=== PATIENT | male | born 1950 | race Caucasian/White ===

== ENCOUNTER 2017-02-14 16:42 | Emergency (ER) | payer MEDICARE, BC ==
--- NOTE | 2017-02-14 16:54 | EDM.PDOC ---
ED HPI GENERAL MEDICAL PROBLEM - General Chief Complaint: Chest Pain Stated Complaint: HEART Time Seen by Provider: 02/14/17 16:50 Source of Information: Reports: Patient, Old Records History Limitations: Reports: No Limitations - History of Present Illness INITIAL COMMENTS - FREE TEXT/NARRATIVE: 66 yo male with no personal or FHx of CAD presents with about a week's duration of substernal chest pain. Sx's not changed with either eating or activity. Stopped his diclofenac thinking this might be the problem, but it didn't help. Is taking Prilosec. Has not been to the clinic. No nausea, diaphoresis or SOB. Has had a couple episodes of worsening of his GERD also lately. No radiation of the pain away from the sternum. No calf pain or LE edema. Is not a smoker. His last BP was about 2 mos ago and was in the 130's systolic. Onset Date: 02/06/17 Duration: Day(s):, Constant Location: Reports: Chest Quality: Reports: Dull Severity: Mild Improves with: Reports: None Worsens with: Reports: None Context: Reports: Other (unknown) Associated Symptoms: Reports: Chest Pain. Denies: Cough, Fever/Chills, Nausea/ Vomiting, Shortness of Breath Treatments BIRDCAGE ASSEMBLER: Reports: Other (see below) (PPI) Chest Pain Score (Numeric/FACES): 2 - Related Data Allergies Allergy/AdvReac Type Severity Reaction Status Date / Time morphine Allergy Severe Anaphylactic Verified 02/14/17 16:52 Shock Home Meds: Home Meds Diclofenac Sodium 1 tab PO BID 12/07/14 [History] Omeprazole [Prilosec] 1 tab PO DAILY 12/07/14 [History] Cetirizine [ZyrTEC] 10 mg PO DAILY 12/06/16 [History] Past Medical History Musculoskeletal History: Reports: Other (See Below) Other Musculoskeletal History: L shoulder pain Other Dermatologic History: lesion removed - Past Surgical History Other Neurological Surgeries/Procedures: back surgery-shaved disc Social & Family History - Tobacco Use Smoking Status *Q: Former Smoker Years of Tobacco use: 45 Packs/Tins Daily: 0.2 Month Tobacco Last Used: 11/2014 Second Hand Smoke Exposure: No - Alcohol Use Days Per Week of Alcohol Use: 5 Number of Drinks Per Day: 2 Total Drinks Per Week: 10 - Recreational Drug Use Recreational Drug Use: No ED ROS GENERAL - Review of Systems Review Of Systems: See Below Constitutional: Reports: No Symptoms HEENT: Reports: No Symptoms Respiratory: Reports: No Symptoms Cardiovascular: Reports: Chest Pain Endocrine: Reports: No Symptoms GI/Abdominal: Reports: No Symptoms : Reports: No Symptoms Musculoskeletal: Reports: No Symptoms Skin: Reports: No Symptoms Neurological: Reports: No Symptoms ED EXAM, GENERAL - Physical Exam Exam: See Below Exam Limited By: No Limitations General Appearance: Alert, WD/WN, No Apparent Distress Eye Exam: Bilateral Eye: Normal Inspection Ears: Normal External Exam, Normal Canal, Hearing Grossly Normal, Normal TMs Ear Exam: Bilateral Ear: Auricle Normal, Canal Normal Nose: Normal Inspection, Normal Mucosa, No Blood Throat/Mouth: Normal Inspection, Normal Lips, Normal Teeth, Normal Oropharynx, Normal Voice, No Airway Compromise Head: Atraumatic, Normocephalic Neck: Normal Inspection, Supple, Non-Tender Respiratory/Chest: No Respiratory Distress, Lungs Clear, Normal Breath Sounds, No Accessory Muscle Use Cardiovascular: Regular Rate, Rhythm, No Edema Back Exam: Normal Inspection. No: CVA Tenderness (R), CVA Tenderness (L) Extremities: Normal Inspection, Normal Range of Motion, Non-Tender, No Pedal Edema Neurological: Alert, Oriented, CN II-XII Intact, Normal Cognition, No Motor/ Sensory Deficits Psychiatric: Normal Affect, Normal Mood Skin Exam: Warm, Dry, Intact, Normal Color, No Rash Lymphatic: No Adenopathy EKG INTERPRETATION EKG Date: 02/14/17 Time: 16:45 Rhythm: NSR Rate (Beats/Min): 74 Jefferson: LAD-Left Jefferson Deviation P-Wave: Present QRS: Normal ST-T: Normal QT: Normal Comparison: NA - No Prior EKG Course - Vital Signs Text/Narrative:: No change with GI cocktail po Last Recorded V/S: Last Vital Signs Temp 36.4 C 02/14/17 16:49 Pulse 73 02/14/17 17:35 Resp 17 02/14/17 17:35 BP 142/84 H 02/14/17 17:48 Pulse Ox 99 02/14/17 17:35 - Orders/Labs/Meds Orders: Active Orders 24 hr Category Date Time Status Cardiac Monitoring [RC] .As Directed Care 02/14/17 16:49 Active EKG Documentation Completion [RC] ASDIRECTED Care 02/14/17 16:50 Active Sodium Chloride 0.9% [Saline Flush] Med 02/14/17 17:20 Active 10 ml FLUSH ASDIRECTED PRN EKG 12 Lead [EK] Routine Ther 02/14/17 16:50 Ordered Medication Orders Sodium Chloride (Saline Flush) 10 ml FLUSH ASDIRECTED PRN PRN Reason: Keep Vein Open Labs: Laboratory Tests 02/14/17 Range/Units 17:03 Troponin I < 0.017 (0.000-0.056) ng/mL Meds: Medications Generic Name Dose Route Start Last Admin Trade Name Freq PRN Reason Stop Dose Admin Sodium Chloride 10 ml 02/14/17 17:20 Saline Flush FLUSH ASDIRECTED PRN Keep Vein Open Discontinued Medications Generic Name Dose Route Start Last Admin Trade Name Freq PRN Reason Stop Dose Admin Clonidine HCl 0.1 mg 02/14/17 17:33 02/14/17 17:48 Catapres PO 02/14/17 17:34 0.1 mg ONETIME ONE Administration Al Hydroxide/Mg Hydroxide 15 0 ml 02/14/17 17:02 02/14/17 17:11 ml/ Lidocaine HCl 15 ml PO 02/14/17 17:03 30 ml ONETIME ONE Administration Labetalol HCl 20 mg 02/14/17 17:20 Normodyne IVPUSH 02/14/17 17:21 NOW ONE Protocol Departure - Departure Time of Disposition: 18:03 Disposition: Home, Self-Care 01 Condition: Fair Clinical Impression: Atypical chest pain GERD (gastroesophageal reflux disease) Qualifiers: Esophagitis presence: with esophagitis Qualified Code(s): K21.0 - Gastro- esophageal reflux disease with esophagitis HTN (hypertension) Qualifiers: Hypertension type: essential hypertension Qualified Code(s): I10 - Essential ( primary) hypertension Referrals: Sergio Coto MD [Primary Care Provider] - Forms: ED Department Discharge - My Orders Last 24 Hours: My Active Orders 02/14/17 16:49 Cardiac Monitoring [RC] .As Directed 02/14/17 16:50 EKG Documentation Completion [RC] ASDIRECTED EKG 12 Lead [EK] Routine 02/14/17 17:20 Sodium Chloride 0.9% [Saline Flush] 10 ml FLUSH ASDIRECTED PRN - Assessment/Plan Last 24 Hours: My Active Orders 02/14/17 16:49 Cardiac Monitoring [RC] .As Directed 02/14/17 16:50 EKG Documentation Completion [RC] ASDIRECTED EKG 12 Lead [EK] Routine 02/14/17 17:20 Sodium Chloride 0.9% [Saline Flush] 10 ml FLUSH ASDIRECTED PRN
[2017-02-14] MEDS ORDERED: Alum Hydrox/Mag Hydrox/Simeth 15 ML, Lidocaine 2% 15 ML PO ONE ×2 (17:02)
[2017-02-14] MEDS ORDERED: Sodium Chloride 0.9% 10 ML Syringe FLUSH PRN (17:20)
[2017-02-14] MEDS ORDERED: Labetalol 20 MG/4 ML Syringe IVPUSH ONE (17:20)
[2017-02-14] MEDS ORDERED: cloNIDine 0.1 MG Tab PO ONE (17:33)
[2017-02-14 18:15] VITALS: BP 141/73
== END 2017-02-14 18:17 | disposition home or self-care (01) ==
LOC: JP.ED 16:42
DX: K21.0 Gastro-esophageal reflux disease with esophagitis (principal); R07.89 Other chest pain; I10 Essential (primary) hypertension; Z87.891 Personal history of nicotine dependence; Z79.899 Other long term (current) drug therapy; Z88.5 Allergy status to narcotic agent
CPT/HCPCS: 36415; 84484; 93005; 93010; 96374; 99285; A9270

== ENCOUNTER 2017-03-02 06:56 | Day surgery (SDC) | payer MEDICARE, BC ==
[2017-03-02] MEDS ORDERED: Lactated Ringers 1,000 ML IV SCH (07:15)
[2017-03-02] MEDS ORDERED: fentaNYL 100 MCG/2 ML SDV ONE (07:24)
[2017-03-02] MEDS ORDERED: Midazolam 1 MG/ML 2 ML SDV ONE (07:24)
[2017-03-02] MEDS ORDERED: Propofol 200 MG/20 ML SDV ONE (07:24)
[2017-03-02 10:13] VITALS: BP 114/70
--- NOTE | 2017-03-02 11:03 | OR ---
DATE OF PROCEDURE: 03/02/2017 PREOPERATIVE DIAGNOSIS: Gastroesophageal reflux disease, chronic use of a proton pump inhibitor. POSTOPERATIVE DIAGNOSES: Gastroesophageal reflux disease, 3 cm hiatal hernia, gastric polyps consistent with fundic gland polyps, and chronic use of a proton pump inhibitor. PROCEDURE: Esophagogastroduodenoscopy with antral biopsies for CLOtest and for pathology to look for Helicobacter pylori, biopsy resection of small gastric polyps, biopsy of gastroesophageal junction. SURGEON: Curly Javier MD. ANESTHESIA: IV anesthesia with monitored anesthesia care. INDICATION: This 66-year-old white male is referred for upper endoscopy because of symptoms of gastroesophageal reflux disease. He has chronically been taking a proton pump inhibitor. I counseled him for upper endoscopy with possible biopsy, including risks and alternatives, and he gave his informed consent to proceed. DESCRIPTION OF PROCEDURE: The patient was placed in the left lateral decubitus position. IV anesthesia was administered by the Anesthesia Service. Time-out was held. The flexible video Olympus upper endoscope was passed through his mouth, down his esophagus, and into his stomach. The scope was easily passed through the pylorus into the duodenum , reaching its third portion. The scope was then slowly withdrawn examining the mucosa throughout. The duodenal mucosa appeared unremarkable. The scope was brought up through the pylorus. There was some fine erythema in the antrum. He is on a proton pump inhibitor which could mask Helicobacter pylori infection. Because of this, we obtained biopsies of the antrum for CLOtest and for pathology to look for Helicobacter pylori. The scope was retroflexed. The most proximal stomach appeared unremarkable. The scope was straightened. In the main body of the stomach, we saw several small polyps, some of which were removed. These were consistent with fundic gland polyps. The scope was then brought up to the GE junction, an to do this, we passed through about a 3 cm in length hiatal hernia. The GE junction was abnormal with fingers of gastric mucosa going proximally up into the esophagus. We obtained multiple, totalling at least six, biopsies of the gastroesophageal junction. The scope was then brought proximally up through the remainder of the esophagus, which otherwise appeared unremarkable, and it was removed. He tolerated the procedure well. Curly Javier MD /[id number] [facility]
== END 2017-03-02 10:16 | disposition home or self-care (01) ==
LOC: JP.SDS 06:56
PROVIDERS: ATTEND Surgery
DX: K31.7 Polyp of stomach and duodenum (principal); K44.9 Diaphragmatic hernia without obstruction or gangrene; K21.9 Gastro-esophageal reflux disease without esophagitis; Z88.8 Allergy status to other drugs, medicaments and biological substances; F17.200 Nicotine dependence, unspecified, uncomplicated
CPT/HCPCS: 43239; 87081; J2250; J2704; J3010; J7120; 88305

== ENCOUNTER 2017-05-18 07:20 | Inpatient (IN) | payer MEDICARE, BC ==
[~2017-05-18 07:20] MED LIST: Bupivacaine 0.5% 50 ML MDV ONE; Bupivacaine 0.5%/EPINEPHrine 1:200,000 50 ML MDV ONE; Dexamethasone 4 MG/ML 5 ML MDV ONE; Povidone-Iodine 10% Soln 118.25 ML Bottle ONE; Thrombin (Bovine) 5,000 Unit Kit ONE
[2017-05-18] MEDS: Lactated Ringers 1,000 ML IV SCH ×2 (08:14→14:45)
[2017-05-18] MEDS ORDERED: ceFAZolin 2 GM in Premix Bag 1 BAG IV ONE (09:00)
[2017-05-18] MEDS ORDERED: Scopolamine 1.5 MG Transdermal Patch TOP SCH (09:00)
[2017-05-18] MEDS ORDERED: Acetaminophen 500 MG Tab PO ONE (09:00)
[2017-05-18] MEDS ORDERED: Gabapentin 300 MG Cap PO ONE (09:00)
[2017-05-18] MEDS ORDERED: fentaNYL 250 MCG/5 ML SDV ONE ×2 (09:18→10:41)
[2017-05-18] MEDS ORDERED: Dexamethasone 4 MG/ML SDV ONE ×2 (09:19→11:43)
[2017-05-18] MEDS ORDERED: Propofol 200 MG/20 ML SDV ONE (09:19)
[2017-05-18] MEDS ORDERED: Ondansetron 4 MG/2 ML SDV ONE (09:19)
[2017-05-18] MEDS ORDERED: Succinylcholine/Normal Saline 200 MG/10 ML Syringe ONE (09:19)
[2017-05-18] MEDS ORDERED: Rocuronium 50 MG/5 ML Vial ONE (09:19)
[2017-05-18] MEDS ORDERED: Ketamine 500 MG/5 ML MDV IV SCH (10:15)
[2017-05-18] MEDS: Tranexamic Acid 920 MG in Sodium Chloride 0.9% 50 ML IV SCH ×2 (11:00→12:18)
[2017-05-18] MEDS ORDERED: Acetaminophen 1,000 MG in Premix Bag 1 BAG IV ONE ×2 (12:25→14:30)
[2017-05-18] MEDS ORDERED: Ondansetron 4 MG/2 ML SDV IVPUSH PRN (12:25)
[2017-05-18] MEDS ORDERED: Zolpidem 5 MG Tab PO PRN (12:25)
[2017-05-18] MEDS ORDERED: Aluminum Hydroxide/Magnesium Hydroxide/Simethicone Susp 30 ML Cup PO PRN (12:25)
[2017-05-18] MEDS ORDERED: Naloxone 0.4 MG/ML SDV IVPUSH PRN (12:25)
[2017-05-18] MEDS ORDERED: HYDROmorphone 1 MG/ML Syringe IVPUSH PRN (12:25)
[2017-05-18] MEDS ORDERED: Cetirizine 10 MG Tab PO PRN (12:28)
[2017-05-18] MEDS ORDERED: ceFAZolin 2 GM in Sodium Chloride 0.9% 50 ML IV SCH ×2 (12:30→16:00)
[2017-05-18] MEDS: ceFAZolin 2 GM in Premix Bag 1 BAG IV SCH (16:12)
--- NOTE | 2017-05-18 17:25 | PCM.PN ---
- General Info Functional Status: Reports: Pain Controlled - Review of Systems General: Reports: No Symptoms HEENT: Reports: Dysphasia Pulmonary: Reports: No Symptoms Cardiovascular: Reports: No Symptoms Gastrointestinal: Reports: No Symptoms Genitourinary: Reports: No Symptoms Musculoskeletal: Reports: No Symptoms Skin: Reports: No Symptoms Neurological: Reports: Numbness, Tingling Psychiatric: Reports: No Symptoms - Patient Data Vitals - Most Recent: Last Vital Signs Temp 96.3 F 05/18/17 14:47 Pulse 80 05/18/17 16:00 Resp 16 05/18/17 16:00 BP 144/75 H 05/18/17 16:00 Pulse Ox 95 05/18/17 16:00 Weight - Most Recent: 203 lb 11.314 oz I&O - Last 24 Hours: Intake & Output 05/18/17 05/18/17 05/18/17 06:59 14:59 22:59 Intake Total 100 50 Balance 100 50 Lab Results Last 24 Hours: Laboratory Results - last 24 hr 05/18/17 Range/Units 08:16 Blood Type A POSITIVE Gel Antibody Screen Negative Med Orders - Current: Current Medications Al Hydroxide/Mg Hydroxide (Mag-Al Plus) 30 ml PO Q4H PRN PRN Reason: Indigestion Cetirizine HCl (Zyrtec) 10 mg PO DAILY PRN PRN Reason: Allergies Hydromorphone HCl (Dilaudid) 1 mg IVPUSH Q2H PRN PRN Reason: Pain Stop: 05/19/17 12:25 Lactated Ringer's (Ringers, Lactated) 1,000 mls @ 0 mls/hr IV ASDIRECTED DULCE PRN Reason: KVO Last Admin: 05/18/17 14:45 Dose: 25 mls/hr Cefazolin Sodium/Dextrose 2 gm (/ Premix) 50 mls @ 100 mls/hr IV Q8H DULCE Stop: 05/19/17 08:29 Last Admin: 05/18/17 16:12 Dose: 100 mls/hr Ketamine HCl (Ketalar) 38 mg IV ASDIRECTED DULCE Magnesium Hydroxide (Milk Of Magnesia) 30 ml PO BID DULCE Naloxone HCl (Narcan) 0.2 mg IVPUSH ONETIME PRN PRN Reason: Oversedation Ondansetron HCl (Zofran) 8 mg IVPUSH Q4H PRN PRN Reason: Nausea/Vomiting Oxycodone HCl (Oxycodone) 10 mg PO Q4H PRN PRN Reason: Pain Stop: 05/19/17 12:25 Oxycodone/Acetaminophen (Percocet 325-5 Mg) 2 tab PO Q4H PRN PRN Reason: Pain Pantoprazole Sodium (Protonix) 40 mg PO ACBREAKFAST DULCE Scopolamine (Transderm-Scop) 1.5 mg TOP Q72H DULCE Stop: 05/20/17 09:01 Last Admin: 05/18/17 08:13 Dose: 1.5 mg Senna (Senna) 8.6 mg PO BID DULCE Zolpidem Tartrate (Ambien) 5 mg PO BEDTIME PRN PRN Reason: Sleep Discontinued Medications Acetaminophen (Tylenol Extra Strength) 1,000 mg PO ONETIME ONE Stop: 05/18/17 09:01 Last Admin: 05/18/17 08:13 Dose: 1,000 mg Bupivacaine HCl (Marcaine 0.5%) Confirm Administered Dose 50 ml .ROUTE .STK-MED ONE Stop: 05/18/17 06:36 Last Admin: 05/18/17 11:16 Dose: 5 ml Bupivacaine HCl/Epinephrine Bitart (Marcaine 0.5%/Epinephrine 1:200,000) Confirm Administered Dose 50 ml .ROUTE .STK-MED ONE Stop: 05/18/17 06:37 Last Admin: 05/18/17 12:39 Dose: 2 ml Dexamethasone (Dexamethasone) Confirm Administered Dose 20 mg .ROUTE .STK-MED ONE Stop: 05/18/17 06:36 Dexamethasone (Dexamethasone) Confirm Administered Dose 4 mg .ROUTE .STK-MED ONE Stop: 05/18/17 09:20 Dexamethasone (Dexamethasone) Confirm Administered Dose 4 mg .ROUTE .STK-MED ONE Stop: 05/18/17 11:44 Fentanyl (Sublimaze) Confirm Administered Dose 250 mcg .ROUTE .STK-MED ONE Stop: 05/18/17 09:19 Fentanyl (Sublimaze) Confirm Administered Dose 250 mcg .ROUTE .STK-MED ONE Stop: 05/18/17 10:42 Gabapentin (Neurontin) 300 mg PO ONETIME ONE Stop: 05/18/17 09:01 Last Admin: 05/18/17 08:13 Dose: 300 mg Cefazolin Sodium/Dextrose 2 gm (/ Premix) 50 mls @ 100 mls/hr IV ONETIME ONE Stop: 05/18/17 09:29 Last Admin: 05/18/17 11:01 Dose: 100 mls/hr Tranexamic Acid 920 mg/ Sodium (Chloride) 59.2 mls @ 236.8 mls/hr IV Q3H [facility] Stop: 05/18/17 13:29 Last Admin: 05/18/17 12:18 Dose: 236.8 mls/hr Propofol (Diprivan 100 Ml) Confirm Administered Dose 100 mls @ as directed .ROUTE .STK-MED ONE Stop: 05/18/17 10:30 Acetaminophen 1,000 mg/ Premix 100 mls @ 400 mls/hr IV NOW ONE Stop: 05/18/17 12:39 Last Admin: 05/18/17 14:49 Dose: Not Given Cefazolin Sodium 2 gm/ Sodium (Chloride) 50 mls @ 100 mls/hr IV Q8H [facility] Stop: 05/19/17 04:59 Last Admin: 05/18/17 16:12 Dose: Not Given Cefazolin Sodium 2 gm/ Sodium (Chloride) 50 mls @ 100 mls/hr IV Q8H [facility] Stop: 05/19/17 08:29 Acetaminophen 1,000 mg/ Premix 100 mls @ 400 mls/hr IV ONETIME ONE Stop: 05/18/17 14:44 Last Admin: 05/18/17 14:42 Dose: 400 mls/hr Magnesium Hydroxide (Milk Of Magnesia) 30 ml PO BID [facility] Non-Formulary Medication (Omeprazole [Omeprazole]) 20 mg PO DAILY [facility] Ondansetron HCl (Zofran) Confirm Administered Dose 4 mg .ROUTE .STK-MED ONE Stop: 05/18/17 09:20 Povidone Iodine (Betadine 10% Soln) Confirm Administered Dose 1 ml .ROUTE .STK- MED ONE Stop: 05/18/17 06:37 Propofol (Diprivan 20 Ml) Confirm Administered Dose 200 mg .ROUTE .STK-MED ONE Stop: 05/18/17 09:20 Rocuronium Noble (Zemuron) Confirm Administered Dose 50 mg .ROUTE .STK-MED ONE Stop: 05/18/17 09:20 Senna (Senna) 8.6 mg PO BID [facility] Succinylcholine Chloride (Succinylcholine In Ns Pf) Confirm Administered Dose 200 mg .ROUTE .STK-MED ONE Stop: 05/18/17 09:20 Thrombin (Thrombin-Jmi) Confirm Administered Dose 15,000 unit .ROUTE .STK-MED ONE Stop: 05/18/17 06:36 - Exam General: Alert, Oriented HEENT: Pupils Equal, Pupils Reactive, Mucous Membr. Moist/[place] Neck: Supple, Trachea Midline Lungs: Normal Respiratory Effort Extremities: Normal Inspection, Non-Tender, Normal Capillary Refill Peripheral Pulses: 2+: Radial (L), Radial (R) Skin: Warm, Dry, Intact Wound/Incisions: Healing Well, Dressing Dry and Intact, No Drainage Neurological: No New Focal Deficit Psy/Mental Status: Alert, Normal Affect, Normal Mood - Problem List & Annotations (1) Spinal stenosis of cervical region Status: Chronic Current Visit: No - Problem List Review Problem List Initiated/Reviewed/Updated: Yes - My Orders Last 24 Hours: My Active Orders 05/18/17 08:32 Sequential Compression Device [OM.PC] Routine 05/18/17 08:47 Fluoro Over 1Hr wo Rad [CR] Routine 05/18/17 09:00 Lactated Ringers [Ringers, Lactated] 1,000 ml IV ASDIRECTED Scopolamine [Transderm-Scop] 1.5 mg TOP Q72H 05/18/17 10:15 Ketamine [Ketalar] 38 mg IV ASDIRECTED - Plan Plan:: A: POD 0 left carpal tunnel release and acdf P: PT/OT, pain control, advance fluids and diet
--- NOTE | 2017-05-18 17:43 | OR ---
DATE OF PROCEDURE: 05/18/2017 PREOPERATIVE DIAGNOSES: 1. Cervical stenosis, C5-C6. 2. Left carpal tunnel syndrome. POSTOPERATIVE DIAGNOSES: 1. Cervical stenosis, C5-C6. 2. Left carpal tunnel syndrome. PROCEDURES: 1. Left carpal tunnel release. 2. Anterior cervical diskectomy and fusion, C5-C6. 3. Anterior instrumentation, C5-C6. 4. Interbody device placement, C5-C6, with globus coalition AGX 12 x 14, 7-degree, 7 mm implant with two 16 mm screws. MEAL GRINDER TENDER: CIRA Kiran. Physician power plant assistant, Yolanda Calvin NP, played an essential role in assisting in this case, helping to position the patient, retract structures as needed, as well as suturing and cutting sutures as indicated. Her presence improved patient's safety and decreased operative time. ANESTHESIA: General endotracheal intubation. FLUIDS: Lactated Ringer solution. ESTIMATED BLOOD LOSS: Less than 10 mL. COMPLICATIONS: None. SPECIMENS: None. DISCHARGE DISPOSITION: Stable to PACU. INDICATIONS FOR THE PROCEDURE: The patient was seen preoperatively in the clinic. He had been suffering with numbness in his left first through fourth digits as well as mid axial neck pain and pain going down to his left shoulder and left arm into the first through fifth digits. He did have a positive Tinel's compression test. Preoperative imaging confirmed the above-mentioned diagnosis. Risks and benefits of the procedure were explained to the patient. Informed consent was obtained. DETAILS OF PROCEDURE: The patient was seen preoperatively by myself and the Anesthesia staff in the preoperative holding area where the operative site was marked. He was brought to the operative suite by the Anesthesia staff where general anesthesia was administered. The left upper extremity was then prepped and draped in sterile manner. A time-out was called identifying the correct patient, the correct procedure, the correct site, and antibiotics had been with an appropriate period of time. A well-padded tourniquet was placed on the left arm. The left upper extremity was exsanguinated. Tourniquet was raised to 250 mm for 4 minutes and taken down after carpal tunnel release. An incision was made just proximal to Person's cardinal line along the border of the first metacarpal in line with the radial border of the fourth digit, extending approximately 1.5 cm. Bleeding was controlled with bipolar electrocautery. I did remove some subcutaneous fat. I then used a self-retaining retractor and was able to identify the transverse carpal ligament, which was divided with a 15-blade. I then undermined the remainder of the transverse carpal ligament as well as deep palmar fascia proximally and distally above and below the deep palmar fascia using Metzenbaum scissors. I then using a Ragnell under direct visualization released the deep palmar fascia proximally and distally of the transverse carpal ligament. After this had been performed, we applied a small amount of Decadron and then copiously irrigated with saline and then closed with 3-0 nylon interrupted horizontal mattress sutures. After this had been performed, we then had our neuromonitoring leads applied and positioned the patient for anterior cervical diskectomy and fusion on a flat Sylvester table. The arms were tucked. The shoulders were taped. The neck was held in neutral extension on a donut. I did confirm preoperative imaging prior to prepping and draping. We then prepped and draped in a sterile manner. The fluoroscopy unit was then draped in a sterile manner. We identified the C5-C6 interspace on lateral fluoroscopy view and then made an oblique incision medial to sternocleidomastoid on the right side approximately 3 cm. This was then carried down through the platysma using Bovie electrocautery. Bleeding during this case was controlled with Bovie electrocautery as well as bipolar electrocautery. I then used Weitlaner retractor, then Metzenbaums and pickups to go through the fascia just medial to the sternocleidomastoid. I then removed the Weitlaner's, then using the blunt dissection was able to find the plane down to the prevertebral space at C5-C6 interspace. I removed a small area of prevertebral fascia and then inserted my Bovie at the C5-C6 interspace and confirmed that we were at the C5-C6 interspace on lateral fluoroscopy. We then inserted two 35 mm shadow-Line blades with teeth that were narrow for retraction. I then cleared the C5- C6 interspace and drilled the inferior osteophyte of C5 anteriorly and removed as much as disk as I could. I then used intervertebral hand profiler and then removed the more disk using curettes and pituitaries as well as the drill. I repeated this on the left and the right side until I was down to the level of the posterior longitudinal ligament. I was able to go through the posterior longitudinal ligament with a nerve hook and then go through it again with #2 Kerrison. I then prepared the endplates for interbody trial preparation by making sure that they were square. I then inserted my trials from 5 to 7 mm. I confirmed good placement on lateral fluoroscopy. I then inserted the final globus coalition AGX interbody with the anterior plate and then awl'd for screws and then under direct visualization and fluoroscopic visualization placed two 16 mm screws. This provided good stability with good bite and placement was confirmed to be good with fluoroscopy. We then took AP and lateral final films. We then copiously irrigated with 3 L of Betadine irrigation. I then controlled some small spots that were oozing blood with bipolar electrocautery. I then placed Floseal in the base of the wound, let it sit there for about for 1 minute, and then tamped any excess with a clean Ray-Alpa. We then inserted a drain at the prevertebral space and carried it out to the lateral aspect of the wound and then placed three 2-0 Vicryl sutures through the platysma followed by Monocryl, followed by sterile dressing. The patient was then transferred to his hospital bed in supine position and taken to the PACU in stable condition. Ezekiel Bradley DO /[id number]
[2017-05-18] MEDS: Magnesium Hydroxide 400 MG/5 ML Susp 30 ML Cup PO SCH (20:03)
[2017-05-18] MEDS: Sennosides 8.6 MG Tab PO SCH (20:03)
[2017-05-18] MEDS ORDERED: Magnesium Hydroxide 400 MG/5 ML Susp 30 ML Cup PO SCH (21:00)
[2017-05-18] MEDS ORDERED: Sennosides 8.6 MG Tab PO SCH (21:00)
[2017-05-18] MEDS: oxyCODONE 5 MG Tab PO PRN (21:56)
[2017-05-19] MEDS: ceFAZolin 2 GM in Premix Bag 1 BAG IV SCH ×2 (00:33→08:01)
[2017-05-19] MEDS: oxyCODONE 5 MG Tab PO PRN ×2 (01:43→08:37)
[2017-05-19] MEDS ORDERED: Pantoprazole 40 MG Tab.CR PO SCH (07:30)
[2017-05-19 08:22] VITALS: BP 138/94
[2017-05-19] MEDS: Sennosides 8.6 MG Tab PO SCH (08:38)
[2017-05-19] MEDS: Magnesium Hydroxide 400 MG/5 ML Susp 30 ML Cup PO SCH (08:38)
[2017-05-19] MEDS ORDERED: Non-Formulary Medication 1 Each (Omeprazole [Omeprazole] 20 MG) PO SCH (09:00)
[2017-05-19] MEDS ORDERED: Acetaminophen/oxyCODONE 325-5 MG Tab PO PRN (12:25)
--- NOTE | 2017-05-27 10:00 | PCM.DCSUM1 ---
Discharge Summary - Hospital Course Free Text/Narrative:: Patient is status postop day 1 of a cervical fusion. He is doing very well. Patient denies any issues. Pain is under control with oral pain medication. He is animated without any difficulties. - Discharge Data Discharge Date: 05/19/17 Discharge Disposition: Home, Self-Care 01 Condition: Good - Patient Summary/Data Consults: Consultations 05/18/17 12:25 OT Evaluation and Treatment [CONS] Routine Please Evaluate and Treat. OT Reason for Consult: Strengthening This query below is only for informational purposes and is not editable. PT Evaluation and Treatment [CONS] Routine Please Evaluate and Treat. PT Reason for Consult: Strengthening This query below is only for informational purposes and is not editable. Respiratory Care Assess and Treatment [CONS] Routine Comment: Physician Instructions: Post-Op Pneumonia Prevention - Patient Instructions Diet: Usual Diet as Tolerated Activity: Apply Ice, As Tolerated Driving: Do Not Drive Showering/Bathing: May Shower Wound/Incision Care: Keep Operative Site/Wound Site Clean and Dry, Change Dressing Daily Notify Provider of: Fever, Increased Pain - Discharge Plan Prescriptions/Med Rec: Acetaminophen/oxyCODONE [Percocet 325-5 MG] 2 tab PO Q4H PRN #90 tablet PRN Reason: Pain Home Medications: Home Meds Cetirizine [ZyrTEC] 10 mg PO DAILY PRN 12/06/16 [History] Omeprazole 20 mg PO DAILY 05/18/17 [History] Acetaminophen/oxyCODONE [Percocet 325-5 MG] 2 tab PO Q4H PRN #90 tablet [Rx] Referrals: Yolanda Calvin NP [Nurse Practitioner] - 06/02/17 10:45 am (2 week recheck) - Discharge Summary/Plan Comment DC Time >30 min.: Yes Discharge Summary/Plan Comment: At this time patient will discharge home. He is to follow-up with us in 4 weeks time. He is notify us if he has any other issues in the meantime. I will send him home on Percocet. - Patient Data Vitals - Most Recent: Last Vital Signs Temp 36.9 C 05/19/17 08:22 Pulse 81 05/19/17 08:22 Resp 16 05/19/17 08:22 BP 138/94 H 05/19/17 08:22 Pulse Ox 97 05/19/17 08:22 Weight - Most Recent: 203 lb 11.314 oz Med Orders - Current: Current Medications Discontinued Medications Acetaminophen (Tylenol Extra Strength) 1,000 mg PO ONETIME ONE Stop: 05/18/17 09:01 Last Admin: 05/18/17 08:13 Dose: 1,000 mg Al Hydroxide/Mg Hydroxide (Mag-Al Plus) 30 ml PO Q4H PRN PRN Reason: Indigestion Bupivacaine HCl (Marcaine 0.5%) Confirm Administered Dose 50 ml .ROUTE .STK-MED ONE Stop: 05/18/17 06:36 Last Admin: 05/18/17 11:16 Dose: 5 ml Bupivacaine HCl/Epinephrine Bitart (Marcaine 0.5%/Epinephrine 1:200,000) Confirm Administered Dose 50 ml .ROUTE .STK-MED ONE Stop: 05/18/17 06:37 Last Admin: 05/18/17 12:39 Dose: 2 ml Cetirizine HCl (Zyrtec) 10 mg PO DAILY PRN PRN Reason: Allergies Dexamethasone (Dexamethasone) Confirm Administered Dose 20 mg .ROUTE .STK-MED ONE Stop: 05/18/17 06:36 Dexamethasone (Dexamethasone) Confirm Administered Dose 4 mg .ROUTE .STK-MED ONE Stop: 05/18/17 09:20 Dexamethasone (Dexamethasone) Confirm Administered Dose 4 mg .ROUTE .STK-MED ONE Stop: 05/18/17 11:44 Fentanyl (Sublimaze) Confirm Administered Dose 250 mcg .ROUTE .STK-MED ONE Stop: 05/18/17 09:19 Fentanyl (Sublimaze) Confirm Administered Dose 250 mcg .ROUTE .STK-MED ONE Stop: 05/18/17 10:42 Gabapentin (Neurontin) 300 mg PO ONETIME ONE Stop: 05/18/17 09:01 Last Admin: 05/18/17 08:13 Dose: 300 mg Hydromorphone HCl (Dilaudid) 1 mg IVPUSH Q2H PRN PRN Reason: Pain Stop: 05/19/17 12:25 Cefazolin Sodium/Dextrose 2 gm (/ Premix) 50 mls @ 100 mls/hr IV ONETIME ONE Stop: 05/18/17 09:29 Last Admin: 05/18/17 11:01 Dose: 100 mls/hr Lactated Ringer's (Ringers, Lactated) 1,000 mls @ 0 mls/hr IV ASDIRECTED [facility] PRN Reason: KVO Last Admin: 05/18/17 14:45 Dose: 25 mls/hr Tranexamic Acid 920 mg/ Sodium (Chloride) 59.2 mls @ 236.8 mls/hr IV Q3H [facility] Stop: 05/18/17 13:29 Last Admin: 05/18/17 12:18 Dose: 236.8 mls/hr Propofol (Diprivan 100 Ml) Confirm Administered Dose 100 mls @ as directed .ROUTE .STK-MED ONE Stop: 05/18/17 10:30 Acetaminophen 1,000 mg/ Premix 100 mls @ 400 mls/hr IV NOW ONE Stop: 05/18/17 12:39 Last Admin: 05/18/17 14:49 Dose: Not Given Cefazolin Sodium 2 gm/ Sodium (Chloride) 50 mls @ 100 mls/hr IV Q8H [facility] Stop: 05/19/17 04:59 Last Admin: 05/18/17 16:12 Dose: Not Given Cefazolin Sodium 2 gm/ Sodium (Chloride) 50 mls @ 100 mls/hr IV Q8H [facility] Stop: 05/19/17 08:29 Acetaminophen 1,000 mg/ Premix 100 mls @ 400 mls/hr IV ONETIME ONE Stop: 05/18/17 14:44 Last Admin: 05/18/17 14:42 Dose: 400 mls/hr Cefazolin Sodium/Dextrose 2 gm (/ Premix) 50 mls @ 100 mls/hr IV Q8H [facility] Stop: 05/19/17 08:29 Last Admin: 05/19/17 08:01 Dose: 100 mls/hr Ketamine HCl (Ketalar) 38 mg IV ASDIRECTED [facility] Magnesium Hydroxide (Milk Of Magnesia) 30 ml PO BID [facility] Magnesium Hydroxide (Milk Of Magnesia) 30 ml PO BID [facility] Last Admin: 05/19/17 08:38 Dose: 30 ml Naloxone HCl (Narcan) 0.2 mg IVPUSH ONETIME PRN PRN Reason: Oversedation Non-Formulary Medication (Omeprazole [Omeprazole]) 20 mg PO DAILY [facility] Ondansetron HCl (Zofran) Confirm Administered Dose 4 mg .ROUTE .STK-MED ONE Stop: 05/18/17 09:20 Ondansetron HCl (Zofran) 8 mg IVPUSH Q4H PRN PRN Reason: Nausea/Vomiting Oxycodone HCl (Oxycodone) 10 mg PO Q4H PRN PRN Reason: Pain Stop: 05/19/17 12:25 Last Admin: 05/19/17 08:37 Dose: 10 mg Oxycodone/Acetaminophen (Percocet 325-5 Mg) 2 tab PO Q4H PRN PRN Reason: Pain Pantoprazole Sodium (Protonix) 40 mg PO ACBREAKFAST [facility] Last Admin: 05/19/17 08:02 Dose: 40 mg Povidone Iodine (Betadine 10% Soln) Confirm Administered Dose 1 ml .ROUTE .STK- MED ONE Stop: 05/18/17 06:37 Propofol (Diprivan 20 Ml) Confirm Administered Dose 200 mg .ROUTE .STK-MED ONE Stop: 05/18/17 09:20 Rocuronium Celestine (Zemuron) Confirm Administered Dose 50 mg .ROUTE .STK-MED ONE Stop: 05/18/17 09:20 Scopolamine (Transderm-Scop) 1.5 mg TOP Q72H [facility] Stop: 05/20/17 09:01 Last Admin: 05/18/17 08:13 Dose: 1.5 mg Senna (Senna) 8.6 mg PO BID [facility] Senna (Senna) 8.6 mg PO BID [facility] Last Admin: 05/19/17 08:38 Dose: 8.6 mg Succinylcholine Chloride (Succinylcholine In Ns Pf) Confirm Administered Dose 200 mg .ROUTE .STK-MED ONE Stop: 05/18/17 09:20 Thrombin (Thrombin-Jmi) Confirm Administered Dose 15,000 unit .ROUTE .STK-MED ONE Stop: 05/18/17 06:36 Zolpidem Tartrate (Ambien) 5 mg PO BEDTIME PRN PRN Reason: Sleep - Exam General: Reports: Alert, Oriented Back Exam: Reports: Normal Inspection Extremities: Normal Inspection, Normal Range of Motion, No Pedal Edema, Normal Capillary Refill Skin: Reports: Warm, Dry, Intact Wound/Incisions: Reports: Healing Well, Dressing Dry and Intact Neurological: Reports: No New Focal Deficit *Q Meaningful Use (DIS) - VTE *Q VTE Criteria *Q: - Stroke *Q Stroke Criteria *Q: - AMI *Q AMI Criteria *Q:
== END 2017-05-19 10:33 | disposition home or self-care (01) | DRG 473 ==
LOC: JP.SDS 07:20 → JP.MS 07:20 → EDSTATUS 07:30 → JP.MS 12:25
PROVIDERS: ADMIT Orthopaedic Surgery; ATTEND Orthopaedic Surgery
PROC: 0RG13A0 Fusion of Cervical Vertebral Joint with Interbody Fusion Device, Anterior Approach, Anterior Column, Percutaneous Approach (ICD-10-PCS; principal; 2017-05-18)
PROC: 01N53ZZ Release Median Nerve, Percutaneous Approach (ICD-10-PCS; 2017-05-18)
PROC: 0RT30ZZ Resection of Cervical Vertebral Disc, Open Approach (ICD-10-PCS; 2017-05-18)
DX: M48.02 Spinal stenosis, cervical region (principal); G56.02 Carpal tunnel syndrome, left upper limb; K21.9 Gastro-esophageal reflux disease without esophagitis; Z87.891 Personal history of nicotine dependence; Z85.828 Personal history of other malignant neoplasm of skin; H54.7 Unspecified visual loss; Z88.5 Allergy status to narcotic agent
CPT/HCPCS: 36415; 76001; 80048; 85025; 86850; 86900; 86901; 97162-GP; 97165-GO; 97530-GP; 97535-GP; A9270-GY; C1713; J0131; J0690; J1100; J2405; J2704; J3010; J3490; J7050; J7120

== ENCOUNTER 2017-09-01 15:44 | Day surgery (SDC) | payer MEDICARE, BC ==
[2017-09-01] MEDS ORDERED: Bupivacaine 0.5%/EPINEPHrine 1:200,000 50 ML MDV ONE (16:19)
[2017-09-01] MEDS ORDERED: Succinylcholine 200 MG/10 ML MDV ONE (16:20)
[2017-09-01] MEDS ORDERED: Neostigmine Methylsulfate 1 MG/ML 5 ML Syringe ONE (16:20)
[2017-09-01] MEDS ORDERED: Glycopyrrolate 0.2 MG/ML 5 ML MDV ONE (16:20)
[2017-09-01] MEDS ORDERED: Rocuronium 50 MG/5 ML Vial ONE (16:20)
[2017-09-01] MEDS ORDERED: Propofol 200 MG/20 ML SDV ONE (16:20)
[2017-09-01] MEDS ORDERED: fentaNYL 250 MCG/5 ML SDV ONE (16:20)
[2017-09-01] MEDS ORDERED: Dexamethasone 4 MG/ML SDV ONE ×2 (16:20→17:40)
[2017-09-01] MEDS ORDERED: Ondansetron 4 MG/2 ML SDV ONE (16:20)
[2017-09-01] MEDS ORDERED: Midazolam 1 MG/ML 2 ML SDV ONE (16:20)
[2017-09-01] MEDS ORDERED: Piperacillin/Tazobactam/Dext 4.5 GM in Premix Bag 1 BAG IV ONE (16:30)
[2017-09-01] MEDS ORDERED: hydrOXYzine HCl 100 MG/2 ML SDV IM PRN (16:47)
[2017-09-01] MEDS ORDERED: Zolpidem 5 MG Tab PO PRN (16:47)
[2017-09-01] MEDS ORDERED: Promethazine 25 MG/ML SDV IM PRN (16:47)
[2017-09-01] MEDS ORDERED: Docusate Sodium 100 MG Cap PO PRN (16:47)
[2017-09-01] MEDS ORDERED: Benzocaine/Cetylpyridinium/Menthol Lozenge MUCMEM PRN (16:47)
[2017-09-01] MEDS ORDERED: Polyethylene Glycol 3350 Powder 17 GM Packet PO PRN (16:47)
[2017-09-01] MEDS ORDERED: diphenhydrAMINE 50 MG/ML SDV IVPUSH PRN (16:47)
[2017-09-01] MEDS ORDERED: Acetaminophen/HYDROcodone 325-10 MG Tab PO PRN (16:47)
[2017-09-01] MEDS ORDERED: LORazepam 2 MG/ML SDV IM PRN (16:54)
[2017-09-01] MEDS ORDERED: Sugammadex Sodium 200 MG/2 ML VIAL ONE (17:39)
[2017-09-01] MEDS: Sodium Chloride 0.9% 1,000 ML IV SCH (20:28)
[2017-09-01] MEDS: Piperacillin/Tazobactam/Dext 4.5 GM in Premix Bag 1 BAG IV SCH (21:43)
--- NOTE | 2017-09-01 23:43 | CONS ---
DATE OF SERVICE: 09/01/2017 REFERRING PHYSICIAN: CONSULTING PHYSICIAN: Angelo Torrez MD REASON FOR CONSULTATION: Abdominal pain. HISTORY OF PRESENT ILLNESS: This is a pleasant 66-year-old male who has had periumbilical/right lower quadrant abdominal pain for approximately 72 hours. This is a new problem for him. No previous abdominal surgery except for inguinal hernia repair. The pain is 1 to 3/10, intermittent, made worse by position. PAST MEDICAL HISTORY: Inguinal hernia. PAST SURGICAL HISTORY: Inguinal hernia. SOCIAL HISTORY: He presents with family today. FAMILY HISTORY: No family history of appendiceal carcinoma. REVIEW OF SYSTEMS: GENERAL: The patient is appropriate for condition. HEENT: No symptoms. CARDIOVASCULAR: No history of myocardial infarction. RESPIRATORY: No shortness of breath. GASTROINTESTINAL: No symptoms except for as noted above. GENITOURINARY: No dysuria. NEUROLOGICAL: No symptoms. No history of stroke. PSYCHIATRIC: No gross depression or reported symptoms. Remainder of review of systems reviewed and is negative. PHYSICAL EXAMINATION: VITAL SIGNS: Stable. GENERAL: The patient is appropriate for his condition. HEENT: Pupils are equal. CARDIOVASCULAR: Regular rhythm and rate. RESPIRATORY: Lungs are clear to auscultation bilaterally. ABDOMEN: Mild pain with palpation, right lower quadrant. NEUROLOGICAL: Oriented x3. PSYCHIATRIC: No gross depression. LABORATORY DATA: Laboratory results are pending. CT scan, I did review, which showed appendicitis. ASSESSMENT: Appendicitis. PLAN: The patient was taken to the operating room for laparoscopic appendectomy. We discussed risks, benefits, alternatives, and limitations including, but not limited to infection, bleeding, perforation, the requirement for open surgery, and cardiovascular compromise including , and the patient understands all these risks and wished to proceed. Angelo Torrez MD /[id number]
[2017-09-02] MEDS: Piperacillin/Tazobactam/Dext 4.5 GM in Premix Bag 1 BAG IV SCH ×3 (04:32→15:27)
[2017-09-02] MEDS: Sodium Chloride 0.9% 1,000 ML IV SCH (04:32)
--- NOTE | 2017-09-02 08:01 | OR ---
DATE OF PROCEDURE: 09/01/2017 PROCEDURE: Laparoscopic appendectomy. FINDINGS: Appendicitis, nonruptured. PREOPERATIVE DIAGNOSIS: Appendicitis. POSTOPERATIVE DIAGNOSIS: Appendicitis. RISKS: Risks, benefits, alternatives, and limitations including, but not limited to infection, bleeding, and perforation in some anatomical structures such as blood vessels and intestines were explained to the patient, and he wished to proceed. PROCEDURE IN DETAIL: The patient was placed in supine position. A supraumbilical curvilinear incision was made. A Veress needle was used to enter the abdomen without abnormality. A drop test was performed without abnormality. After abdominal insufflation was achieved, an Optiview trocar was inserted. No evidence of enterotomy or injury was noted during entry. Two additional 5 mm ports were placed, one in the right mid abdomen and one in the lower abdomen. Careful attention was made not to injure any additional structures, such as the bladder. The appendix was readily identified. It was noted to be suppurative, but not perforated. There was no evidence of abscess. This was transected with 2 ibarra load staplers. Minimal bleeding was controlled by electrocautery. Electrocautery source was not used in proximity to any intestinal structure. The abdomen was irrigated with 1 L of irrigation and removed. The abdomen was inspected for abnormalities, and no abnormalities were noted. The wounds were irrigated, closed with 3-0 Vicryl and 4-0 Vicryl interrupted in running fashion. Dermabond was applied. The patient tolerated the procedure well. Angelo Torrez MD /[id number]
[2017-09-02 11:38] VITALS: BP 138/78
--- NOTE | 2017-09-02 12:54 | DISCH ---
HOSPITAL COURSE: Xu is a pleasant 66-year-old male, who was diagnosed with acute appendicitis. The patient was taken to the operating room and underwent a laparoscopic appendectomy. The appendix was found to be nonruptured. No evidence of abscess or any other abnormality. On postoperative day #1, the patient's pain was well controlled. He had no nausea, vomiting, shortness of breath, or chest pain. He is passing gas and his pain is well controlled on no narcotic pain medications. FOLLOWUP: Follow up with Surgery in 7 to 14 days. DISCHARGE MEDICATIONS: Please see MAR, but include the same medications as he was admitted on. No prescription pain medication will be dispensed per patient's request. Follow up 7 to 14 days. ACTIVITY: No lifting greater than 30 pounds for 30 days.
--- NOTE | 2017-09-02 12:57 | PN ---
DATE OF SERVICE: 09/02/2017 SUBJECTIVE: The patient is doing very well. Pain is well controlled. No nausea, vomiting, shortness of breath, or chest pain. He is passing gas. OBJECTIVE: VITAL SIGNS: Stable. CARDIOVASCULAR: Regular rhythm and rate. RESPIRATORY: Lungs are clear to auscultation bilaterally. ABDOMEN: Bowel sounds positive. Incision healing well. Very mild tenderness. No rebound or guarding. LABORATORY DATA: Laboratory results are acceptable. ASSESSMENT: Status post laparoscopic appendectomy. PLAN: The patient will undergo 24 hours of antibiotics per standard protocol. After this, he was subsequently discharged. Please see discharge instructions for further details. Angelo Torrez MD /[id number]
== END 2017-09-02 16:00 | disposition home or self-care (01) ==
LOC: JP.SDS 15:44 → UNDOADMIN 15:46 → JP.MS 15:46 → UNDODISIN 09-02 16:00 → JP.SDS 09-02 16:00 → EDSTATUS 09-05 10:05
PROVIDERS: ATTEND Surgery
DX: K35.80 Unspecified acute appendicitis (principal); K66.0 Peritoneal adhesions (postprocedural) (postinfection); K21.9 Gastro-esophageal reflux disease without esophagitis; I49.9 Cardiac arrhythmia, unspecified; Z87.891 Personal history of nicotine dependence; Z88.5 Allergy status to narcotic agent
CPT/HCPCS: 36415; 44970; 80048; 80053; 85025; 85027; 93005; A9270; C9399; J0330; J1100; J2250; J2405; J2543; J2704; J2710; J3010; J7030; 88304

== ENCOUNTER 2018-05-05 06:24 | Day surgery (SDC) | payer MEDICARE ==
[2018-05-05] MEDS ORDERED: Sodium Chloride 0.9% 1,000 ML IV SCH (07:00)
[2018-05-05] MEDS ORDERED: fentaNYL 100 MCG/2 ML SDV ONE (07:18)
[2018-05-05] MEDS ORDERED: Propofol 200 MG/20 ML SDV ONE (07:18)
[2018-05-05] MEDS ORDERED: Midazolam 1 MG/ML 2 ML SDV ONE (07:18)
[2018-05-05 08:47] VITALS: BP 135/97
--- NOTE | 2018-05-05 10:44 | OR ---
DATE OF PROCEDURE: 05/05/2018 PROCEDURE: EGD. FINDINGS: 1. Inflammation, small prominent tongue consistent with Schuler's esophagus. 2. Hiatal hernia, moderate. COMPLICATIONS: None. VENDOR MANAGEMENT CONSULTANT: None. ANESTHESIA: MAC. PREOPERATIVE DIAGNOSES: Epigastric pain/dysphagia/history of Schuler's esophagus. POSTOPERATIVE DIAGNOSES: Epigastric pain/dysphagia/history of Schuler's esophagus. RISKS: Risks, benefits, alternatives, and limitations including, but not limited to infection, bleeding, and perforation were explained to the patient who wished to proceed. PROCEDURE IN DETAIL: The patient was placed in left lateral decubitus position. The EGD scope was introduced, advanced atraumatically in the 2nd part of the duodenum. The scope was brought back and retroflexed. The aforementioned hernia was identified and found to be moderate-sized. At the GE junction, there was inflammation consistent with reflux disease. In addition, there was a prominent tongue consistent with Schuler's esophagus. This tongue was biopsied times approximately 4. The entire or all 4 quadrants of the remaining junction were biopsied with approximately total of 10-15 biopsy sites. The remainder of esophagus was normal. The patient tolerated the procedure well. Angelo Torrez MD /[id number]
== END 2018-05-05 08:48 | disposition home or self-care (01) ==
LOC: JP.SDS 06:24
PROVIDERS: ATTEND Surgery
DX: K22.70 Barrett's esophagus without dysplasia (principal); K44.9 Diaphragmatic hernia without obstruction or gangrene; R10.13 Epigastric pain; K21.9 Gastro-esophageal reflux disease without esophagitis; Z88.5 Allergy status to narcotic agent
CPT/HCPCS: 43239; 88305; J2250; J2704; J3010; J7030

== ENCOUNTER 2018-06-06 06:25 | Day surgery (SDC) | payer MEDICARE ==
[2018-06-06] MEDS ORDERED: Sodium Chloride 0.9% 1,000 ML IV SCH (07:00)
[2018-06-06] MEDS ORDERED: Midazolam 1 MG/ML 2 ML SDV ONE (07:19)
[2018-06-06] MEDS ORDERED: fentaNYL 100 MCG/2 ML SDV ONE (07:19)
[2018-06-06] MEDS ORDERED: Propofol 200 MG/20 ML SDV ONE (07:19)
[2018-06-06 10:23] VITALS: BP 127/76
--- NOTE | 2018-06-06 11:30 | OR ---
DATE OF PROCEDURE: 06/06/2018 PROCEDURE: 1. EGD with Galindo placement. 2. Biopsy of GE junction. COMPLICATIONS: None. PRODUCTION POTTER: None. PREOPERATIVE DIAGNOSIS: History of Schuler's esophagus and epigastric pain due to reflux. RISKS: Risks, benefits, alternatives, and limitations including, but not limited to, infection, bleeding, and perforation of the esophagus, lungs, false positives and false negatives were explained. The patient wished to proceed. PROCEDURE DETAILS: The patient was placed in left lateral decubitus position. The EGD scope was introduced, advanced atraumatically to second part of the duodenum. In the stomach itself, the patient was noted to have a 4 cm hiatal hernia. No evidence of gastritis or ulceration. Narrow band imaging was then used to evaluate the junction with the single tongue of Schuler's that was readily identified. This was biopsied x4 with cold biopsy forceps. Top of GE junction was measured at 38 cm with the Galindo placed at 32 cm. The scope was then removed. The Galindo was introduced using standard protocol. The Galindo was placed at the aforementioned location. Suction was applied for 30 seconds. The clip was deployed. Suction was removed. The carrier was removed. The scope was introduced and device noted to be intact. The patient tolerated the procedure well. Angelo Torrez MD /[id number]
== END 2018-06-06 09:35 | disposition home or self-care (01) ==
LOC: JP.SDS 06:25
PROVIDERS: ATTEND Surgery
DX: K22.70 Barrett's esophagus without dysplasia (principal); K21.9 Gastro-esophageal reflux disease without esophagitis; M48.02 Spinal stenosis, cervical region; Z79.899 Other long term (current) drug therapy; Z88.5 Allergy status to narcotic agent
CPT/HCPCS: 43239; J2250; J2704; J3010; J7030

== ENCOUNTER 2018-10-10 06:51 | Day surgery (SDC) | payer MEDICARE ==
[2018-10-10] MEDS ORDERED: Propofol 200 MG/20 ML SDV ONE (07:28)
[2018-10-10] MEDS ORDERED: fentaNYL 100 MCG/2 ML SDV ONE (07:28)
[2018-10-10] MEDS ORDERED: Midazolam 1 MG/ML 2 ML SDV ONE (07:28)
[2018-10-10] MEDS ORDERED: Sodium Chloride 0.9% 1,000 ML IV SCH (07:30)
[2018-10-10] MEDS ORDERED: ceFAZolin 2 GM in Sodium Chloride 0.9% 50 ML IV ONE (08:00)
[2018-10-10 10:12] VITALS: BP 115/78; PULSE 61
--- NOTE | 2018-10-10 10:15 | OR ---
DATE OF PROCEDURE: 10/10/2018 PROCEDURE: Esophagogastroduodenoscopy with dilation. PREOPERATIVE DIAGNOSIS: Esophagogastric junction outflow obstruction/dysphagia. POSTOPERATIVE DIAGNOSIS: Esophagogastric junction outflow obstruction/dysphagia. SURGEON: Angelo Torrez MD RISKS: Risks, benefits, alternatives, and limitations including, but not limited to infection, bleeding, and perforation were explained to the patient and wished to proceed. PROCEDURE IN DETAIL: The patient was placed in left lateral decubitus position. The EGD scope was introduced and advanced atraumatically into the second part of the duodenum. No duodenitis, no ulceration. Within the stomach itself, no abnormalities. The patient was noted to have approximately 4 cm hernia. The 45-English balloon was then introduced under direct guidance and advanced to stage II. This was then removed. No abnormal bleeding was noted. The esophagus was normal. The patient tolerated the procedure well. Angelo Torrez MD /[id number]
== END 2018-10-10 09:50 | disposition home or self-care (01) ==
LOC: JP.SDS 06:51
PROVIDERS: ATTEND Surgery
DX: K22.2 Esophageal obstruction (principal); K44.9 Diaphragmatic hernia without obstruction or gangrene; K21.9 Gastro-esophageal reflux disease without esophagitis; Z88.5 Allergy status to narcotic agent
CPT/HCPCS: 43233; J0690; J2250; J2704; J3010; J7030; J7050

== ENCOUNTER 2018-11-17 07:02 | Day surgery (SDC) | payer MEDICARE ==
[2018-11-17] MEDS ORDERED: Propofol 200 MG/20 ML SDV ONE (07:07)
[2018-11-17] MEDS ORDERED: fentaNYL 100 MCG/2 ML SDV ONE (07:07)
[2018-11-17] MEDS ORDERED: Midazolam 1 MG/ML 2 ML SDV ONE (07:07)
[2018-11-17] MEDS ORDERED: Sodium Chloride 0.9% 1,000 ML IV SCH (07:30)
[2018-11-17] MEDS ORDERED: ceFAZolin 2 GM in Premix Bag 1 BAG IV ONE (08:00)
[2018-11-17 10:07] VITALS: BP 118/73
--- NOTE | 2018-11-17 13:34 | OR ---
DATE OF PROCEDURE: 11/17/2018 SURGEON: Angelo Torrez MD PROCEDURE: EGD. PREOPERATIVE DIAGNOSES: Esophagogastric junction outflow obstruction/dysphagia. POSTOPERATIVE DIAGNOSES: Esophagogastric junction outflow obstruction/dysphagia. RISKS: Risks, benefits, alternatives, and limitations including, but not limited to infection, bleeding, and perforation were explained to the patient, who wished to proceed. PROCEDURE IN DETAIL: The patient was placed in left lateral decubitus position. The EGD scope was introduced and advanced atraumatically into the duodenum. No abnormalities were noted. No abnormalities in stomach. 45-Sami balloon was then dilated across the GE junction to stage II without abnormalities. This was deflated. The balloon was removed. The patient tolerated the procedure well. Angelo Torrez MD /[id number]
== END 2018-11-17 09:50 | disposition home or self-care (01) ==
LOC: JP.SDS 07:02
PROVIDERS: ATTEND Surgery
DX: K22.2 Esophageal obstruction (principal)
CPT/HCPCS: 43235; J0690; J2250; J2704; J3010; J7030

== ENCOUNTER 2019-03-06 06:49 | Day surgery (SDC) | payer MEDICARE ==
[~2019-03-06 06:49] MED LIST changes: +Acetylcysteine 600 MG, Water For Injection,Sterile 57 ML ONE; -Bupivacaine 0.5% 50 ML MDV ONE; -Bupivacaine 0.5%/EPINEPHrine 1:200,000 50 ML MDV ONE; -Dexamethasone 4 MG/ML 5 ML MDV ONE; -Povidone-Iodine 10% Soln 118.25 ML Bottle ONE; +Sodium Chloride 0.9% 1,000 ML IV SCH; -Thrombin (Bovine) 5,000 Unit Kit ONE
[2019-03-06] MEDS ORDERED: Midazolam 1 MG/ML 2 ML SDV ONE (07:30)
[2019-03-06] MEDS ORDERED: fentaNYL 100 MCG/2 ML SDV ONE (07:30)
[2019-03-06] MEDS ORDERED: Propofol 200 MG/20 ML SDV ONE (07:30)
[2019-03-06] MEDS ORDERED: Glycopyrrolate 0.2 MG/ML 2 ML SDV ONE (07:31)
[2019-03-06] MEDS ORDERED: Sodium Chloride 0.9% 1,000 ML IV SCH (07:50)
[2019-03-06] MEDS ORDERED: Acetylcysteine 600 MG, Water For Injection,Sterile 57 ML ONE ×2 (08:15)
[2019-03-06] MEDS ORDERED: Alum Hydrox/Mag Hydrox/Simeth 360 ML, Lidocaine 2% 60 ML PO PRN ×2 (08:59)
[2019-03-06 09:39] VITALS: BP 142/97; PULSE 72
--- NOTE | 2019-03-06 13:33 | OR ---
DATE OF PROCEDURE: 03/06/2019 SURGEON: Angelo Torrez MD PROCEDURES: 1. Esophagogastroduodenoscopy. 2. Radiofrequency ablation of Schuler's esophagus with top of gastric fold at 40 and top of intestinal metaplasia at 38 (CPT code 53466). COMPLICATIONS: None. LEAD MANUFACTURING ENGINEERING TECH: None. ANESTHESIA: MAC. RISKS: Risks, benefits, alternatives, and limitations including, but not limited to infection, bleeding, and perforation were explained to the patient, who wished to proceed. PROCEDURE IN DETAIL: The patient was placed in left lateral decubitus position. The EGD scope was advanced to the GE junction. Mucomyst was injected. The stomach and duodenum were then inspected. No abnormalities were noted. The top of the gastric fold was noted to be at 40 and top of intestinal metaplasia was noted to be at 38. Guidewire was then advanced under direct visualization. The device was introduced and straddled over the metaplasia. This was then inflated and deployed. The device was removed. The scope was reintroduced. The scraper was used to remove the ablated material. The device was then reintroduced and applied a second time. The device was then removed. The scope was reintroduced. No abnormalities were noted. The air and liquid were removed from the stomach. The remainder of the esophagus was normal. The patient tolerated the procedure well. Angelo Torrez MD /[id number]
== END 2019-03-06 10:10 | disposition home or self-care (01) ==
LOC: JP.SDS 06:49
PROVIDERS: ATTEND Surgery
DX: K22.70 Barrett's esophagus without dysplasia (principal); Z88.5 Allergy status to narcotic agent
CPT/HCPCS: 43229; A9270; C1713; C1886; J0132; J2250; J2704; J3010; J3490; J7030

== ENCOUNTER 2019-05-31 06:37 | Day surgery (SDC) | payer MEDICARE ==
[2019-05-31] MEDS ORDERED: Sodium Chloride 0.9% 1,000 ML IV SCH (07:15)
[2019-05-31] MEDS ORDERED: Propofol 200 MG/20 ML SDV ONE (07:15)
[2019-05-31] MEDS ORDERED: fentaNYL 100 MCG/2 ML SDV ONE (07:15)
[2019-05-31] MEDS ORDERED: Midazolam 1 MG/ML 2 ML SDV ONE (07:15)
[2019-05-31] MEDS ORDERED: Ondansetron 4 MG/2 ML SDV ONE (07:16)
[2019-05-31] MEDS ORDERED: Alum Hydrox/Mag Hydrox/Simeth 360 ML, Lidocaine 2% 60 ML PO SCH ×2 (07:30)
[2019-05-31] MEDS ORDERED: Scopolamine 1.5 MG Transdermal Patch TOP ONE (07:30)
[2019-05-31] MEDS ORDERED: Acetylcysteine 600 MG, Water For Injection,Sterile 57 ML ONE ×2 (07:45)
[2019-05-31 09:28] VITALS: BP 119/76; PULSE 60
[2019-05-31] MEDS ORDERED: Alum Hydrox/Mag Hydrox/Simeth 360 ML, Lidocaine 2% 60 ML PO PRN ×2 (10:00)
--- NOTE | 2019-05-31 12:03 | OR ---
DATE OF PROCEDURE: 05/31/2019 SURGEON: Angelo Torrez MD PROCEDURES: 1. Barrx radiofrequency ablation. 2. Esophagogastroduodenoscopy. COMPLICATIONS: None. FOSTER CARE THERAPIST: None. ANESTHESIA: MAC. PREOPERATIVE DIAGNOSIS: Schuler's esophagus. POSTOPERATIVE DIAGNOSIS: Schuler's esophagus. RISKS: Risks, benefits, alternatives, and limitations including, but not limited to infection, bleeding, and perforation explained to the patient, who wished to proceed. PROCEDURE IN DETAIL: The patient was placed in left lateral decubitus position. EGD scope was introduced and advanced atraumatically into the stomach and duodenum. No abnormalities were noted. At the GE junction itself at the top of the gastric fold, which was at 38 to the top, and the intestinal metaplasia was at 36, there was a 2 cm area of Schuler's. This was addressed with a 90-degree Barrx ablator in the to-cling-to fashion without abnormality. Once ablated, this was inspected, no abnormalities were noted. The patient tolerated the procedure well. Angelo Torrez MD /[id number]
== END 2019-05-31 09:31 | disposition home or self-care (01) ==
LOC: JP.SDS 06:37
PROVIDERS: ATTEND Surgery
DX: K22.70 Barrett's esophagus without dysplasia (principal); Z88.5 Allergy status to narcotic agent
CPT/HCPCS: A9270-GY; C1713; J2250; J2405; J2704; J3010; J7030

== ENCOUNTER 2019-07-26 06:33 | Day surgery (SDC) | payer MEDICARE ==
[2019-07-26] MEDS ORDERED: Sodium Chloride 0.9% 1,000 ML IV SCH (07:00)
[2019-07-26] MEDS ORDERED: Midazolam 1 MG/ML 2 ML SDV ONE (07:40)
[2019-07-26] MEDS ORDERED: Ondansetron 4 MG/2 ML SDV ONE (07:40)
[2019-07-26] MEDS ORDERED: Propofol 200 MG/20 ML SDV ONE (07:40)
[2019-07-26] MEDS ORDERED: fentaNYL 100 MCG/2 ML SDV ONE (07:40)
[2019-07-26] MEDS ORDERED: Acetylcysteine 600 MG, Water For Injection,Sterile 57 ML ONE ×2 (07:45)
[2019-07-26 09:09] VITALS: BP 119/84; PULSE 65
--- NOTE | 2019-07-26 09:51 | OR ---
DATE OF PROCEDURE: 07/26/2019 SURGEON: Angelo Torrez MD PROCEDURE: Barrx radiofrequency ablation of Schuler's esophagus, 90-degree paddle used. PREOPERATIVE DIAGNOSIS: Schuler's esophagus. POSTOPERATIVE DIAGNOSIS: Schuler's esophagus. COMPLICATION: None. DISPATCH CLERK: None. INDICATIONS: This is a pleasant 68-year-old male, who has gastroesophageal reflux, Schuler's esophagus and requires ablation prior to his Abdoulaye fundoplication. This is ablation #3. RISKS: Risks, benefits, alternatives, and limitations including, but not limited to, infection, bleeding, perforation, chronic pain, and other risks not listed were explained to the patient, who wished to proceed. PROCEDURE IN DETAIL: The patient was placed in left lateral decubitus position. EGD scope was introduced and advanced atraumatically. Following the standard protocol, the top of the gastric fold was measured at 40, the top of the intestinal metaplasia was at 3 cm. This was very minimal. A very minimal Schuler's remaining. Therefore, the 90 paddle type ablation tool was selected. This was ablated in standard form x2 with scraping x2 a second time. This was good contact and no problems were noted. No abnormalities were noted during this procedure. The scope was then brought out, and the patient tolerated the procedure well. Angelo Torrez MD /[id number]
== END 2019-07-26 09:15 | disposition home or self-care (01) ==
LOC: JP.SDS 06:33
PROVIDERS: ATTEND Surgery
DX: K22.70 Barrett's esophagus without dysplasia (principal); K21.9 Gastro-esophageal reflux disease without esophagitis; Z88.5 Allergy status to narcotic agent
CPT/HCPCS: 43270; J2250; J2405; J2704; J3010; J7030

== ENCOUNTER 2019-08-31 06:57 | Day surgery (SDC) | payer MEDICARE ==
[2019-08-31] MEDS ORDERED: fentaNYL 250 MCG/5 ML SDV ONE (07:43)
[2019-08-31] MEDS ORDERED: Dexamethasone 4 MG/ML SDV ONE (07:43)
[2019-08-31] MEDS ORDERED: Ondansetron 4 MG/2 ML SDV ONE (07:43)
[2019-08-31] MEDS ORDERED: Rocuronium 50 MG/5 ML Vial ONE (07:43)
[2019-08-31] MEDS ORDERED: Succinylcholine 200 MG/10 ML MDV ONE (07:43)
[2019-08-31] MEDS ORDERED: Propofol 200 MG/20 ML SDV ONE (07:43)
[2019-08-31] MEDS ORDERED: Neostigmine Methylsulfate 1 MG/ML 5 ML Syringe ONE (07:43)
[2019-08-31] MEDS ORDERED: Glycopyrrolate 0.2 MG/ML 5 ML MDV ONE (07:43)
[2019-08-31] MEDS: Sodium Chloride 0.9% 1,000 ML IV SCH ×2 (08:00→18:48)
[2019-08-31] MEDS ORDERED: ceFAZolin 2 GM in Premix Bag 1 BAG IV ONE (08:45)
[2019-08-31] MEDS ORDERED: Ketorolac 60 MG/2 ML SDV ONE (10:14)
[2019-08-31] MEDS ORDERED: Lactated Ringers 1,000 ML ONE (10:21)
[2019-08-31] MEDS ORDERED: fentaNYL 100 MCG/2 ML SDV ONE (10:23)
[2019-08-31] MEDS ORDERED: Bisacodyl 5 MG Tab PO PRN (11:34)
[2019-08-31] MEDS ORDERED: hydrOXYzine HCL 100 MG/2 ML SDV IM PRN (11:34)
[2019-08-31] MEDS ORDERED: Acetaminophen/HYDROcodone 325-10 MG Tab PO PRN (11:34)
[2019-08-31] MEDS ORDERED: Ondansetron 4 MG/2 ML SDV IVPUSH PRN (11:34)
[2019-08-31] MEDS ORDERED: Benzocaine/Cetylpyridinium/Menthol Lozenge MUCMEM PRN ×2 (11:34)
[2019-08-31] MEDS ORDERED: diphenhydrAMINE 50 MG/ML SDV IVPUSH PRN (11:34)
[2019-08-31] MEDS ORDERED: Ondansetron 4 MG Tab.DIS PO PRN (11:34)
[2019-08-31] MEDS ORDERED: fentaNYL 100 MCG/2 ML SDV IVPUSH PRN (11:34)
--- NOTE | 2019-08-31 13:15 | OR ---
DATE OF PROCEDURE: 08/31/2019 SURGEON: Angelo Torrez MD PROCEDURE: Transversus abdominis plane block bilaterally. COMPLICATION: None. SUPERVISOR METAL CANS: None. ANESTHESIA: MAC. PREOPERATIVE DIAGNOSIS: Requirement for transversus abdominis plane block. POSTOPERATIVE DIAGNOSIS: Requirement for transversus abdominis plane block. RISKS: Risks, benefits, alternatives, and limitations including, but not limited to, infection, bleeding, and injury to abdominal structures were explained to the patient, who wished to proceed. PROCEDURE IN DETAIL: The patient was placed in supine position. The left side was addressed first. The transversus plane was identified using a 13 megahertz ultrasound probe. 80% of solution was injected on this side. The right side was then performed in the same manner, same fashion, same technique, and in the same sequence and remaining of the solution was then injected on the other side. The patient tolerated the procedure well, dressings were applied. Angelo Torrez MD /[id number]
--- NOTE | 2019-08-31 14:29 | OR ---
DATE OF PROCEDURE: 08/31/2019 SURGEON: Angelo Torrez MD PROCEDURES: 1. Laparoscopic Abdoulaye fundoplication with repair of paraesophageal hernia and mesh implantation (35693). 2. Intraoperative esophagogastroduodenoscopy. COMPLICATION: None. JOINT CUTTER MACHINE: None. INDICATIONS: A pleasant 68-year-old male, who had significant gastroesophageal reflux disease and Schuler's esophagus. The patient was treated with Barrx radiofrequency ablation and completed that term. He now is scheduled for fundoplication repair of hiatal hernia. RISKS: Risks, benefits, alternatives, and limitations including, but not limited to infection, bleeding, injury to abdominal structures such as aorta, blood vessels, esophagus, and others not listed here. We also discussed that gastroesophageal reflux disease is a lifelong disease, and this is only designed to mitigate this. We also discussed the potential failure rate of Abdoulaye fundoplication over time, the possible requirement for re- initiation of proton pump inhibitors, and other risks not listed here. The patient understands these risks and wishes to proceed. PREOPERATIVE DIAGNOSIS: Gastroesophageal reflux disease. POSTOPERATIVE DIAGNOSIS: Gastroesophageal reflux disease. DESCRIPTION OF PROCEDURE: The patient was placed in a supine position. At 15 cm inferior and 5 cm lateral to the xiphoid process, a 12 mm incision was made. This was carried down with a 15 blade. A Veress needle was used to enter the abdomen and drop test was performed without abnormality. This was followed by an Optiview trocar. No evidence of enterotomy or injury was noted. 5 mm ports were then placed along the subcostal margin, 1 on the right, 1 in the midline for liver retraction, and 2 on the left side. All of these were placed under direct visualization. The patient was noted immediately to have a moderate-sized liver, which was then retracted using the liver clamp. Of note, this was removed at the end of the case and inspected for abnormality. None was noted. The patient had a fairly good sized hernia, which contained a large amount of abdominal fat. Dissection of the sac was initiated on the pars flaccida on the right side with separation of the sac from the mckayla on the right. Gentle blunt dissection was then continued. At no time was electrocautery used in proximity to the esophagus. Dissection continued with the Harmonic Scalpel, and this was only used when the area to be addressed was elevated free from its underlying tissues and away from the esophagus. The vagus nerves would be identified during this process, not interacted with in any way, other than deflection and avoidance. The sac here would then be mobilized on the right side. The left side was then addressed next. The short gastrics would then be dissected using Harmonic Scalpel. Two blue clamps would be used to elevate the greater omentum versus the stomach and Harmonic would be used in the tunnel between them. This dissection continued all the way up into the spleen. Some adhesions were noted at this area. There were also adhesions probably related to the Barrx ablation. A few times, the procedure was switched from the left and right continuing mobilization. A Kenyon drain would be placed posterior to the esophagus, further elevating and allowing manipulation of the stomach and esophagus. The entire sac would be removed from the chest. The perineum would be identified but not interacted with anyway. A small amount of adhesions would also be broken up in this area using Harmonic Scalpel. The repair would be a posterior repair using interrupted Tycron sutures x2. Once the posterior repair was complete, a Tori clamp could be passed through, however, there was not undue tension nor was this lax. The stomach was then passed posteriorly. Careful attention was made not to disorient this. A shoe-shine maneuver was performed, and the stomach was left and did not retract into the left side. This was then sutured with 2 interrupted sutures, stomach to esophagus and stomach to stomach to stomach. The mesh was then placed around the repair. This was tacked into place. The area was inspected for abnormality. This was then filled with liquid and Trendelenburg position was placed. The EGD was then introduced and retroflexed. A good wrap was noted. No leaks were noted. The EGD was terminated. The air was removed from the stomach. The wounds were closed with 3-0 Vicryl and 4-0 Vicryl in interrupted running fashion. Dermabond was applied. The patient tolerated the procedure well. Angelo Torrez MD /[id number]
[2019-08-31] MEDS ORDERED: Ketorolac 30 MG/ML SDV IVPUSH PRN (16:00)
[2019-08-31] MEDS: ceFAZolin 2 GM in Premix Bag 1 BAG IV SCH (16:08)
[2019-09-01] MEDS: ceFAZolin 2 GM in Premix Bag 1 BAG IV SCH (00:35)
[2019-09-01 07:32] VITALS: BP 176/94; PULSE 82
== END 2019-09-01 09:19 | disposition home or self-care (01) ==
LOC: JP.SDS 06:57 → JP.MS 11:34 → JP.SDS 09-01 09:19
PROVIDERS: ATTEND Surgery
DX: K44.9 Diaphragmatic hernia without obstruction or gangrene (principal); K21.9 Gastro-esophageal reflux disease without esophagitis; Z87.19 Personal history of other diseases of the digestive system; Z79.899 Other long term (current) drug therapy; Z88.5 Allergy status to narcotic agent; Z98.890 Other specified postprocedural states
CPT/HCPCS: 36415; 43282; 64488; 80048; 85027; A9270; J0171; J0330; J0690; J1100; J1885; J2405; J2704; J2710; J2795; J3010; J3410; J3490; J7030; J7050; J7120; C1713; C1776